=== PATIENT | female | born 1990 | race African-American/Black ===

== ENCOUNTER → 2017-11-21 | Outpatient (CLI) | payer OTHER | LOC: MC.RAD 09:45 | DX: N63.10 Unspecified lump in the right breast, unspecified quadrant (principal); M79.601 Pain in right arm; Z80.3 Family history of malignant neoplasm of breast ==

== ENCOUNTER 2018-03-09 14:35 | Emergency (ER) | payer MEDICAID ==
[~2018-03-09] VITALS: Ht 162.6 cm; Wt 78.2 kg
[2018-03-09 14:59] LABS: COLLECTION METHOD CLEAN CATCH
[2018-03-09 15:14] LABS: BASO % 0.4 % (0.0-2.0); EOS # 0.1 (0.0-0.7); EOS % 1.7 % (0-4.0); GRAN # 4.9 (1.4-6.5); GRAN % 59.8 % (42.2-75.2); HEMATOCRIT 38.5 % (37.0-47.0); HEMOGLOBIN 12.6 g/dl (12.5-16.0); LYMPH # 2.4 (1.2-3.4); LYMPH % 29.4 % (20.0-51.0); MEAN CELL VOLUME 80 fl (80.0-100.0); MEAN CORPUSCULAR HEMOGLOBIN 26 pg (27.0-31.0); MEAN CORPUSCULAR HGB CONC 33 g/dl (33.0-37.0); MEAN PLATELET VOLUME 8.7 fl (7.4-10.4); MONO # 0.7 (0.1-0.6); MONO % 8.5 % (1.7-9.3); PLATELET COUNT 235 K/mm3 (130-400); RED BLOOD COUNT 4.79 M/mm3 (4.10-5.30); REDCELL DISTRIBUTION WIDTH-CV 13.8 % (11.5-14.5)
[2018-03-09 15:15] LABS: BUDDING YEAST Present /hpf; MUCOUS Present /lpf; PH 6 (5-8); URINE APPEARANCE Clear; URINE BACTERIA None Seen /hpf; URINE BILIRUBIN Negative (NEGATIVE); URINE BLOOD 3+ (NEGATIVE); URINE COLOR Amber; URINE GLUCOSE Negative (NEGATIVE); URINE KETONE Negative (NEGATIVE); URINE LEUKOCYTE ESTERASE Trace (NEGATIVE); URINE NITRATE Negative (NEGATIVE); URINE PROTEIN(semi-quant) 2+ (NEGATIVE); URINE RBC >50 /hpf; URINE UROBILINOGEN Negative (NEGATIVE)
[2018-03-09 16:47] VITALS: BP 124/84; PULSE 64; TEMP 97
== END 2018-03-09 16:48 | disposition home or self-care (01) ==
LOC: COL.ER 14:35
PROVIDERS: Emergency Medicine
DX: O20.0 Threatened abortion (principal); Z3A.00 Weeks of gestation of pregnancy not specified; Z87.59 Personal history of other complications of pregnancy, childbirth and the puerperium; Z67.20 Type B blood, Rh positive

== ENCOUNTER 2018-09-30 16:47 | Emergency (ER) | payer MEDICAID ==
[~2018-09-30] VITALS: Ht 162.6 cm; Wt 76.4 kg
[2018-09-30 16:53] VITALS: TEMP 98.5
[2018-09-30 17:20] LABS: COLLECTION METHOD CLEAN CATCH
[2018-09-30 17:24] LABS: BASO % 0.2 % (0.0-2.0); EOS # 0.2 (0.0-0.7); EOS % 1.6 % (0-4.0); GRAN # 8.9 (1.4-6.5); GRAN % 76.2 % (42.2-75.2); HEMOGLOBIN 10.8 g/dl (12.5-16.0); LYMPH # 1.8 (1.2-3.4); LYMPH % 15.2 % (20.0-51.0); MEAN CELL VOLUME 81 fl (80.0-100.0); MEAN CORPUSCULAR HEMOGLOBIN 28 pg (27.0-31.0); MEAN CORPUSCULAR HGB CONC 34 g/dl (33.0-37.0); MEAN PLATELET VOLUME 8.3 fl (7.4-10.4); MONO # 0.7 (0.1-0.6); MONO % 6.3 % (1.7-9.3); PLATELET COUNT 196 K/mm3 (130-400); RED BLOOD COUNT 3.93 M/mm3 (4.10-5.30); REDCELL DISTRIBUTION WIDTH-CV 13.7 % (11.5-14.5)
[2018-09-30 17:28] LABS: HEMATOCRIT 31.7 % (37.0-47.0)
[2018-09-30 17:33] LABS: ALBUMIN 3.3 gm/dL (3.5-5.0); BILIRUBIN,TOTAL 0.1 mg/dL (0.0-1.0); CALCIUM 8.9 mg/dL (8.4-10.2); CREATININE, serum 0.49 mg/dL (0.52-1.25); POTASSIUM 3.7 mmol/L (3.4-5.0); TOTAL PROTEIN 6.6 gm/dL (6.4-8.2)
[2018-09-30 17:38] LABS: AMORPHOUS CRYSTAL Present /uL; MUCOUS Present /lpf; PH 7 (5-8); URINE APPEARANCE Cloudy; URINE BACTERIA None Seen /hpf; URINE BILIRUBIN Negative (NEGATIVE); URINE BLOOD Negative (NEGATIVE); URINE COLOR Yellow; URINE GLUCOSE Negative (NEGATIVE); URINE KETONE Negative (NEGATIVE); URINE LEUKOCYTE ESTERASE Negative (NEGATIVE); URINE NITRATE Negative (NEGATIVE); URINE PROTEIN(semi-quant) Negative (NEGATIVE); URINE RBC 0-2 /hpf; URINE UROBILINOGEN Negative (NEGATIVE)
[2018-09-30] MEDS ORDERED: ZITHROMAX Z PA250 MG PO (18:48)
[2018-09-30 19:03] VITALS: BP 106/74; PULSE 76
== END 2018-09-30 19:03 | disposition home or self-care (01) ==
LOC: COL.ER 16:47
PROVIDERS: Physician Assistant
DX: J06.9 Acute upper respiratory infection, unspecified (principal)
CPT/HCPCS: J7030

== ENCOUNTER 2018-12-09 09:07 | Emergency (ER) | payer MEDICAID ==
[~2018-12-09] VITALS: Ht 162.6 cm; Wt 8.2 kg
[~2018-12-09 09:07] MED LIST: ZITHROMAX Z PA250 MG PO
[2018-12-09 09:11] VITALS: BP 116/71; TEMP 98.7
[2018-12-09 09:41] LABS: BASO % 0.1 % (0.0-2.0); EOS # 0.2 (0.0-0.7); EOS % 2.1 % (0-4.0); GRAN # 5.6 (1.4-6.5); GRAN % 69.1 % (42.2-75.2); HEMOGLOBIN 10.1 g/dl (12.5-16.0); LYMPH # 1.7 (1.2-3.4); LYMPH % 21.5 % (20.0-51.0); MEAN CELL VOLUME 78 fl (80.0-100.0); MEAN CORPUSCULAR HEMOGLOBIN 26 pg (27.0-31.0); MEAN CORPUSCULAR HGB CONC 33 g/dl (33.0-37.0); MEAN PLATELET VOLUME 7.5 fl (7.4-10.4); MONO # 0.5 (0.1-0.6); MONO % 6.6 % (1.7-9.3); PLATELET COUNT 161 K/mm3 (130-400); RED BLOOD COUNT 3.95 M/mm3 (4.10-5.30); REDCELL DISTRIBUTION WIDTH-CV 13.8 % (11.5-14.5)
[2018-12-09 09:43] LABS: HEMATOCRIT 30.9 % (37.0-47.0)
[2018-12-09 10:02] LABS: ALBUMIN 3.1 gm/dL (3.5-5.0); BILIRUBIN,TOTAL 0.2 mg/dL (0.0-1.0); CALCIUM 8.7 mg/dL (8.4-10.2); CREATININE, serum 0.4 mg/dL (0.52-1.25); POTASSIUM 3.8 mmol/L (3.4-5.0); TOTAL PROTEIN 6.4 gm/dL (6.4-8.2)
[2018-12-09 10:49] LABS: COLLECTION METHOD CLEAN CATCH
[2018-12-09 11:07] LABS: MUCOUS Present /lpf; PH 6 (5-8); SQUAMOUS EPITHELIAL >50 /hpf; URINE APPEARANCE Turbid; URINE BACTERIA Rare /hpf; URINE BILIRUBIN Negative (NEGATIVE); URINE BLOOD Negative (NEGATIVE); URINE COLOR Amber; URINE GLUCOSE Negative (NEGATIVE); URINE KETONE Negative (NEGATIVE); URINE LEUKOCYTE ESTERASE 3+ (NEGATIVE); URINE NITRATE Negative (NEGATIVE); URINE PROTEIN(semi-quant) 1+ (NEGATIVE); URINE UROBILINOGEN >=4.0 mg/dL (NEGATIVE)
[2018-12-09] MEDS ORDERED: CEPHALEXIN500 M1 PO (11:11)
[2018-12-09 11:26] VITALS: PULSE 110
== END 2018-12-09 11:26 | disposition home or self-care (01) ==
LOC: COL.ER 09:07
PROVIDERS: Physician Assistant
DX: O23.93 Unspecified genitourinary tract infection in pregnancy, third trimester (principal); O99.513 Diseases of the respiratory system complicating pregnancy, third trimester; O99.013 Anemia complicating pregnancy, third trimester; J06.9 Acute upper respiratory infection, unspecified; Z3A.30 30 weeks gestation of pregnancy

== ENCOUNTER 2019-02-09 19:00 | Inpatient (IN) | payer MEDICAID ==
[~2019-02-09] VITALS: Ht 165.1 cm; Wt 92.3 kg
[2019-02-09] VITALS (9 sets, daily range): BP systolic 120–147; BP diastolic 60–100; PULSE 62–88; TEMP 98–98.3
[~2019-02-09 19:00] MED LIST changes: +CEPHALEXIN500 M1 PO
--- NOTE | 2019-02-09 19:05 | NUR ---
HERE WITH GRANDMOTHER AND GIRLFRIEND FOR LABOR CHECK. VERY UNCOMFORTBLE -UNABLE TO WALK DURING. [address] VANESSA. ADMIT ORDERS
--- NOTE | 2019-02-09 21:20 | NUR ---
2119/-2 D ODILIA CALLED FOR EPIDURAL PLACEMENT
[2019-02-09 21:29] LABS: BASO % 0.1 % (0.0-2.0); EOS % 0.1 % (0-4.0); GRAN # 9.5 (1.4-6.5); GRAN % 82.1 % (42.2-75.2); HEMATOCRIT 32.4 % (37.0-47.0); LYMPH # 1.5 (1.2-3.4); LYMPH % 13.1 % (20.0-51.0); MEAN CELL VOLUME 75 fl (80.0-100.0); MEAN CORPUSCULAR HEMOGLOBIN 23 pg (27.0-31.0); MEAN CORPUSCULAR HGB CONC 31 g/dl (33.0-37.0); MEAN PLATELET VOLUME 8.1 fl (7.4-10.4); MONO # 0.4 (0.1-0.6); MONO % 3.7 % (1.7-9.3); PLATELET COUNT 185 K/mm3 (130-400); RED BLOOD COUNT 4.35 M/mm3 (4.10-5.30); REDCELL DISTRIBUTION WIDTH-CV 16.4 % (11.5-14.5)
[2019-02-09] MEDS ORDERED: PRENATAL MVI (21:36)
--- NOTE | 2019-02-09 22:00 | NUR ---
SITTING UPRIGHT FOR EPID PER Home HARTLEY. TOLERATES WELL. TO LL AFTER. FAMILY AND FRIEND HERE,SUPPORTIVE
--- NOTE | 2019-02-09 23:10 | NUR ---
BEDSIDE REPORT TO JESSE Alvarez RN.
[2019-02-10] VITALS (23 sets, daily range): BP systolic 102–149; BP diastolic 61–88; PULSE 77–100; TEMP 98.1–99
--- NOTE | 2019-02-10 03:11 | NUR ---
0230- Patient called out stating that she thinks her water broke. SVE at this time 10cm/+2 station with meconium stained fluid. Patient feeling pressure and urge to push. 0240- Patient in lithotomy, instructed on pushing. 0245- Dr. Collazo called for delivery. 0303- Dr. Collazo and nursery nurse at bedside for delivery at this time. 0311- Spontaneous delivery of viable female infant at this time. placed on patient's chest, dried and stimulated, pink and crying. 0320- Spontaneous delivery of intact placenta, pitocin rapidly infusing at this time. 0323- First degree repaired per Dr. Collazo. EBL 200cc's and apgars 9,9,9.
--- NOTE | 2019-02-10 09:15 | NUR ---
Initial visit; Mom and Grandma thanked Clinical Research Director for offering congratulations and God's blessings for the of their little girl. Clinical Research Director thanked María for choosing [facility].
--- NOTE | 2019-02-11 03:00 | NUR ---
INFANT TO [facility] AT THIS TIME PER PT REQUEST. PT TEARFUL AND REPORTS THAT HER NIPPLES ARE VERY SORE AND TENDER. NIPPLE SHIELD HAD BEEN PROVIDED EARLIER IN THE EVENING. ASSISTED WITH LATCHING DURING BREASTFEED AND LATCH IS GOOD. LANOLIN AT BEDSIDE. PT REPORTS SHE IS GOING TO ATTEMPT TO SLEEP.
[2019-02-11 08:35] VITALS: BP 135/91; PULSE 90; TEMP 97.7
[2019-02-11 11:30] VITALS: BP 128/81; PULSE 91; TEMP 98.6
[2019-02-11 16:50] VITALS: BP 122/79; PULSE 89; TEMP 98.3
[2019-02-11 19:15] VITALS: BP 133/83; PULSE 89; TEMP 98.9
[2019-02-12 04:05] VITALS: BP 131/83; PULSE 78; TEMP 98.1
--- NOTE | 2019-02-12 06:00 | NUR ---
Rests in bed, awakens with verbal stimuli. Denies any needs at this time.
[2019-02-12 07:30] VITALS: BP 120/89; PULSE 72; TEMP 98.1
--- NOTE | 2019-02-12 08:00 | NUR ---
Holds baby lovingly. Denies any needs at this time.
[2019-02-12] MEDS ORDERED: IBU600 MG PO (08:10)
--- NOTE | 2019-02-12 14:00 | NUR ---
Father of the baby here. Holds baby.
--- NOTE | 2019-02-12 15:00 | NUR ---
1515 Discharge instructions given, verbalizes understanding.
== END 2019-02-12 15:30 | disposition home or self-care (01) | DRG 807 ==
LOC: LDRO 19:00 → LDR 20:23 → OB 20:23
PROVIDERS: ADMIT Obstetrics & Gynecology
PROC: 10E0XZZ Delivery of Products of Conception, External Approach (ICD-10-PCS; principal; 2019-02-09)
PROC: 0HQ9XZZ Repair Perineum Skin, External Approach (ICD-10-PCS; 2019-02-09)
DX: O99.02 Anemia complicating childbirth (principal); Z37.0 Single live birth; O77.0 Labor and delivery complicated by meconium in amniotic fluid; O70.0 First degree perineal laceration during delivery; Z3A.39 39 weeks gestation of pregnancy
CPT/HCPCS: J2795; J7120

== ENCOUNTER 2020-06-12 09:35 | Emergency (ER) | payer SELFPAY ==
[~2020-06-12] VITALS: Ht 162.6 cm; Wt 84.5 kg
[~2020-06-12 09:35] MED LIST changes: +IBU600 MG PO; +PRENATAL MVI
[2020-06-12 10:00] VITALS: BP 123/87
[2020-06-12 10:33] LABS: BASO % 0.2 % (0.0-2.0); EOS % 0.2 % (0-4.0); GRAN # 4.4 (1.4-6.5); GRAN % 75.6 % (42.2-75.2); HEMATOCRIT 42.1 % (37.0-47.0); HEMOGLOBIN 13.6 g/dl (12.5-16.0); LYMPH % 17.9 % (20.0-51.0); MEAN CELL VOLUME 78 fl (80.0-100.0); MEAN CORPUSCULAR HEMOGLOBIN 25 pg (27.0-31.0); MEAN CORPUSCULAR HGB CONC 32 g/dl (33.0-37.0); MEAN PLATELET VOLUME 8.3 fl (7.4-10.4); MONO # 0.3 (0.1-0.6); MONO % 5.9 % (1.7-9.3); PLATELET COUNT 123 K/mm3 (130-400); RED BLOOD COUNT 5.38 M/mm3 (4.10-5.30); REDCELL DISTRIBUTION WIDTH-CV 13.2 % (11.5-14.5)
[2020-06-12 10:40] LABS: STREP SCREEN NEGATIVE
[2020-06-12 10:43] LABS: ALBUMIN 4.2 gm/dL (3.5-5.0); BILIRUBIN,TOTAL 0.4 mg/dL (0.0-1.0); CALCIUM 8.8 mg/dL (8.4-10.2); CREATININE, serum 0.74 (0.52-1.25); POTASSIUM 3.8 mmol/L (3.4-5.0); TOTAL PROTEIN 8.2 gm/dL (6.4-8.2)
[2020-06-12 11:26] VITALS: PULSE 89; TEMP 99
== END 2020-06-12 11:45 | disposition home or self-care (01) ==
LOC: COL.ER 09:35
PROVIDERS: Physician Assistant
DX: B34.9 Viral infection, unspecified (principal); Z20.828 Contact with and (suspected) exposure to other viral communicable diseases
CPT/HCPCS: J7030

== ENCOUNTER 2020-07-02 13:54 | Emergency (ER) | payer SELFPAY ==
[~2020-07-02] VITALS: Ht 162.6 cm; Wt 79.5 kg
[2020-07-02 14:07] VITALS: TEMP 99.9
[2020-07-02 14:51] LABS: HEMOGLOBIN 11.7 g/dl (12.5-16.0); MEAN CELL VOLUME 77 fl (80.0-100.0); MEAN CORPUSCULAR HEMOGLOBIN 25 pg (27.0-31.0); MEAN CORPUSCULAR HGB CONC 32 g/dl (33.0-37.0); MEAN PLATELET VOLUME 8.5 fl (7.4-10.4); PLATELET COUNT 166 K/mm3 (130-400); RED BLOOD COUNT 4.74 M/mm3 (4.10-5.30); REDCELL DISTRIBUTION WIDTH-CV 13.6 % (11.5-14.5)
[2020-07-02 14:58] LABS: COLLECTION METHOD CLEAN CATCH
[2020-07-02 15:00] LABS: HEMATOCRIT 36.5 % (37.0-47.0)
[2020-07-02 15:07] LABS: MUCOUS Present /lpf; PH 6 (5-8); URINE APPEARANCE Cloudy; URINE BACTERIA Occasional /hpf; URINE BILIRUBIN Negative (NEGATIVE); URINE BLOOD Negative (NEGATIVE); URINE COLOR Amber; URINE GLUCOSE Negative (NEGATIVE); URINE KETONE Negative (NEGATIVE); URINE LEUKOCYTE ESTERASE 3+ (NEGATIVE); URINE NITRATE Negative (NEGATIVE); URINE PROTEIN(semi-quant) 2+ (NEGATIVE); URINE UROBILINOGEN >=4.0 mg/dL (NEGATIVE)
[2020-07-02 15:19] LABS: ALBUMIN 3.5 gm/dL (3.5-5.0); BILIRUBIN,TOTAL 0.7 mg/dL (0.0-1.0); CALCIUM 8.4 mg/dL (8.4-10.2); CREATININE, serum 0.6 (0.52-1.25); POTASSIUM 3.6 mmol/L (3.4-5.0); TOTAL PROTEIN 7.5 gm/dL (6.4-8.2)
[2020-07-02 15:35] LABS: BAND 2 % (0-10); LYMPHOCYTE 10 % (20.0-51.0); NEUTROPHILS 79 % (42.0-75.2); NUCLEATED RED BLOOD CELL 1 (0-6)
[2020-07-02 15:36] LABS: OVALOCYTES 1+
[2020-07-02 15:37] LABS: HYPOCHROMIA 1+; MICROCYTOSIS 1+; PLATELET ESTIMATE NORMAL (NORMAL)
[2020-07-02] MEDS ORDERED: PROTONIX20 MG PO (17:26)
[2020-07-02] MEDS ORDERED: ZOFRAN ODT4 MG PO (17:26)
[2020-07-02] MEDS ORDERED: CEFTIN500 MG PO (17:26)
[2020-07-02 17:30] VITALS: BP 108/64; PULSE 85
== END 2020-07-02 17:39 | disposition home or self-care (01) ==
LOC: COL.ER 13:54
PROVIDERS: Emergency Medicine
DX: R11.2 Nausea with vomiting, unspecified (principal); R10.11 Right upper quadrant pain; N39.0 Urinary tract infection, site not specified; Z32.02 Encounter for pregnancy test, result negative
CPT/HCPCS: J0696; J2405; J7030; Q9967

== ENCOUNTER 2020-07-18 09:33 | Emergency (ER) | payer SELFPAY ==
[~2020-07-18] VITALS: Ht 162.6 cm; Wt 77.3 kg
[~2020-07-18 09:33] MED LIST changes: +CEFTIN500 MG PO; +PROTONIX20 MG PO; +ZOFRAN ODT4 MG PO
[2020-07-18 10:37] LABS: BASO % 0.5 % (0.0-2.0); EOS % 0.1 % (0-4.0); GRAN # 5.4 (1.4-6.5); GRAN % 73.7 % (42.2-75.2); HEMATOCRIT 33.5 % (37.0-47.0); HEMOGLOBIN 10.7 g/dl (12.5-16.0); LYMPH # 1.3 (1.2-3.4); LYMPH % 18.1 % (20.0-51.0); MEAN CELL VOLUME 77 fl (80.0-100.0); MEAN CORPUSCULAR HEMOGLOBIN 25 pg (27.0-31.0); MEAN CORPUSCULAR HGB CONC 32 g/dl (33.0-37.0); MEAN PLATELET VOLUME 8.5 fl (7.4-10.4); MONO # 0.5 (0.1-0.6); MONO % 6.4 % (1.7-9.3); PLATELET COUNT 112 K/mm3 (130-400); RED BLOOD COUNT 4.33 M/mm3 (4.10-5.30); REDCELL DISTRIBUTION WIDTH-CV 15.6 % (11.5-14.5)
[2020-07-18 10:46] LABS: ALBUMIN 3.9 gm/dL (3.5-5.0); BILIRUBIN,TOTAL 0.7 mg/dL (0.0-1.0); C-REACTIVE PROTEIN 6.3 mg/dL (0.0-0.9); CALCIUM 8.5 mg/dL (8.4-10.2); CREATININE, serum 0.67 (0.52-1.25); MONOSCREEN NEGATIVE; POTASSIUM 3.7 mmol/L (3.4-5.0); TOTAL PROTEIN 8.2 gm/dL (6.4-8.2)
[2020-07-18 10:47] LABS: STREP SCREEN NEGATIVE
[2020-07-18] MEDS ORDERED: ZITHROMAX Z PA250 MG PO (12:07)
[2020-07-18] MEDS ORDERED: NORCO 325 MG-51 TAB PO (12:07)
[2020-07-18 12:31] VITALS: BP 118/70; PULSE 97; TEMP 98.1
== END 2020-07-18 12:33 | disposition home or self-care (01) ==
LOC: COL.ER 09:33
PROVIDERS: Family Medicine
DX: I88.9 Nonspecific lymphadenitis, unspecified (principal); E86.0 Dehydration; Z20.828 Contact with and (suspected) exposure to other viral communicable diseases
CPT/HCPCS: J1100; J7120

== ENCOUNTER 2021-06-06 09:14 | Emergency (ER) | payer MEDICAID ==
[~2021-06-06] VITALS: Ht 162.6 cm; Wt 97.3 kg
[~2021-06-06 09:14] MED LIST changes: +NORCO 325 MG-51 TAB PO
[2021-06-06 09:23] VITALS: TEMP 98.8
[2021-06-06 11:54] VITALS: BP 122/62; PULSE 80
== END 2021-06-06 11:55 | disposition home or self-care (01) ==
LOC: COL.ER 09:14
DX: G43.909 Migraine, unspecified, not intractable, without status migrainosus (principal); J06.9 Acute upper respiratory infection, unspecified; Z20.822 Contact with and (suspected) exposure to COVID-19; Z79.1 Long term (current) use of non-steroidal anti-inflammatories (NSAID)
CPT/HCPCS: C9113; J1100; J1200; J1885; J2405; J7030

== ENCOUNTER 2021-06-21 15:37 | Emergency (ER) | payer MEDICAID ==
[~2021-06-21] VITALS: Ht 162.6 cm; Wt 97.3 kg
[2021-06-21 16:03] VITALS: BP 122/84; PULSE 106
[2021-06-21 17:18] LABS: STREP SCREEN NEGATIVE
[2021-06-21 17:52] LABS: COLLECTION METHOD CLEAN CATCH
[2021-06-21 18:37] LABS: MUCOUS Present /lpf; PH 6 (5-8); URINE APPEARANCE Cloudy; URINE BACTERIA Rare /hpf; URINE BILIRUBIN Negative (NEGATIVE); URINE BLOOD Negative (NEGATIVE); URINE COLOR Amber; URINE GLUCOSE Negative (NEGATIVE); URINE KETONE 1+ (NEGATIVE); URINE LEUKOCYTE ESTERASE 1+ (NEGATIVE); URINE NITRATE Negative (NEGATIVE); URINE PROTEIN(semi-quant) 2+ (NEGATIVE); URINE UROBILINOGEN >=4.0 mg/dL (NEGATIVE)
[2021-06-21] MEDS ORDERED: OMNICEF 300MG300 MG PO (18:43)
[2021-06-21] MEDS ORDERED: NORCO 325 MG-51 TAB PO (18:43)
[2021-06-21 19:01] VITALS: TEMP 102.8
== END 2021-06-21 19:03 | disposition home or self-care (01) ==
LOC: COL.ER 15:37
PROVIDERS: Family Medicine
DX: G43.909 Migraine, unspecified, not intractable, without status migrainosus (principal); N39.0 Urinary tract infection, site not specified; Z20.822 Contact with and (suspected) exposure to COVID-19
CPT/HCPCS: J0780; J1200

== ENCOUNTER 2021-07-04 09:19 | Emergency (ER) | payer MEDICAID ==
[~2021-07-04] VITALS: Ht 162.6 cm; Wt 97.3 kg
[~2021-07-04 09:19] MED LIST changes: +OMNICEF 300MG300 MG PO
[2021-07-04 09:32] VITALS: BP 124/86; TEMP 98.5
[2021-07-04] MEDS ORDERED: PREDNISONE20 MG PO (10:44)
[2021-07-04] MEDS ORDERED: POLYMYXIN B/TRIMETH OS (10:44)
[2021-07-04 10:59] VITALS: PULSE 81
== END 2021-07-04 11:00 | disposition home or self-care (01) ==
LOC: COL.ER 09:19
DX: H10.32 Unspecified acute conjunctivitis, left eye (principal)

== ENCOUNTER 2021-07-25 09:07 | Emergency (ER) | payer MEDICAID ==
[~2021-07-25] VITALS: Ht 162.6 cm; Wt 90.9 kg
[~2021-07-25 09:07] MED LIST changes: +POLYMYXIN B/TRIMETH OS; +PREDNISONE20 MG PO
[2021-07-25 09:18] VITALS: TEMP 99.7
[2021-07-25 09:47] LABS: COLLECTION METHOD CLEAN CATCH
[2021-07-25 10:01] LABS: MUCOUS Present /lpf; PH 5 (5-8); SQUAMOUS EPITHELIAL 20-50 /hpf; URINE APPEARANCE Cloudy; URINE BACTERIA Occasional /hpf; URINE BILIRUBIN Negative (NEGATIVE); URINE BLOOD Negative (NEGATIVE); URINE COLOR Amber; URINE GLUCOSE Negative (NEGATIVE); URINE KETONE Trace (NEGATIVE); URINE LEUKOCYTE ESTERASE Trace (NEGATIVE); URINE NITRATE Negative (NEGATIVE); URINE PROTEIN(semi-quant) 2+ (NEGATIVE); URINE UROBILINOGEN >=4.0 mg/dL (NEGATIVE)
[2021-07-25 10:05] LABS: HEMATOCRIT 39.2 % (37.0-47.0); HEMOGLOBIN 12.8 g/dl (12.5-16.0); MEAN CELL VOLUME 75 fl (80.0-100.0); MEAN CORPUSCULAR HEMOGLOBIN 24 pg (27.0-31.0); MEAN CORPUSCULAR HGB CONC 33 g/dl (33.0-37.0); MEAN PLATELET VOLUME 8.4 fl (7.4-10.4); PLATELET COUNT 126 K/mm3 (130-400); RED BLOOD COUNT 5.25 M/mm3 (4.10-5.30)
[2021-07-25 10:19] LABS: MONOSCREEN NEGATIVE
[2021-07-25 10:21] LABS: ALBUMIN 3.6 gm/dL (3.5-5.0); BILIRUBIN,TOTAL 0.6 mg/dL (0.2-1.2); CREATININE, serum 0.88 mg/dL (0.57-1.11); POTASSIUM 3.6 mmol/L (3.5-4.5); TOTAL PROTEIN 8.6 gm/dL (6.2-8.1)
[2021-07-25 10:33] LABS: STREP SCREEN NEGATIVE
[2021-07-25] MEDS ORDERED: ZOFRAN ODT4 MG PO (10:49)
[2021-07-25 11:20] LABS: BAND 2 % (0-10); LYMPHOCYTE 11 % (20.0-51.0); NEUTROPHILS 82 % (42.0-75.2)
[2021-07-25 11:21] LABS: OVALOCYTES 1+
[2021-07-25 11:22] LABS: MICROCYTOSIS 1+
[2021-07-25 11:23] LABS: HYPOCHROMIA 1+; PLATELET ESTIMATE DECREASED (NORMAL)
[2021-07-25 11:30] VITALS: BP 134/78; PULSE 89
== END 2021-07-25 11:39 | disposition home or self-care (01) ==
LOC: COL.ER 09:07
PROVIDERS: Emergency Medicine
DX: B34.9 Viral infection, unspecified (principal); Z20.822 Contact with and (suspected) exposure to COVID-19
CPT/HCPCS: J0561; J2405; J7030

== ENCOUNTER → 2021-10-12 | Outpatient (CLI) | payer MEDICAID ==
[2021-10-12 13:36] LABS: BASO % 0.3 % (0.0-2.0); EOS % 0.1 % (0.0-4.0); GRAN # 5.6 K/mm3 (1.4-6.5); GRAN % 79.5 % (42.2-75.2); HEMATOCRIT 38.7 % (37.0-47.0); HEMOGLOBIN 12.4 g/dl (12.5-16.0); LYMPH # 0.8 K/mm3 (1.2-3.4); LYMPH % 10.7 % (20.0-51.0); MEAN CELL VOLUME 71 fl (80.0-100.0); MEAN CORPUSCULAR HEMOGLOBIN 23 pg (27-31); MEAN CORPUSCULAR HGB CONC 32 g/dl (33.0-37.0); MEAN PLATELET VOLUME 9.5 fl (7.4-10.4); MONO # 0.6 K/mm3 (0.1-0.6); MONO % 8.1 % (1.7-9.3); PLATELET COUNT 191 K/mm3 (130-400); RED BLOOD COUNT 5.42 M/mm3 (4.10-5.30); REDCELL DISTRIBUTION WIDTH-CV 16.2 % (11.5-14.5)
[2021-10-12 13:59] LABS: ALBUMIN 3.1 gm/dL (3.5-5.0); C-REACTIVE PROTEIN 8.76 mg/dL (0.00-0.50); CALCIUM 9.1 mg/dL (8.4-10.2); CREATININE, serum 0.67 mg/dL (0.57-1.11); POTASSIUM 3.6 mmol/L (3.5-4.5); TOTAL PROTEIN 9.6 gm/dL (6.2-8.1)
[2021-10-12 14:45] LABS: HIV 1/2 Antibodies Non-Reactive; HIV-1p24 Antigen Non-Reactive
== END ==
LOC: COL.LAB 12:43 → COL.RAD 15:00
PROVIDERS: Registered Nurse
DX: Z13.9 Encounter for screening, unspecified (principal); R10.9 Unspecified abdominal pain; R59.0 Localized enlarged lymph nodes
CPT/HCPCS: 87522; Q9967

== ENCOUNTER 2021-10-13 10:20 | Emergency (ER) | payer MEDICAID ==
[~2021-10-13] VITALS: Ht 162.6 cm; Wt 72.7 kg
[2021-10-13 12:03] LABS: BASO % 0.4 % (0.0-2.0); GRAN # 3.3 K/mm3 (1.4-6.5); HEMATOCRIT 38.1 % (37.0-47.0); HEMOGLOBIN 12.2 g/dl (12.5-16.0); LYMPH # 0.7 K/mm3 (1.2-3.4); LYMPH % 16.4 % (20.0-51.0); MEAN CELL VOLUME 72 fl (80.0-100.0); MEAN CORPUSCULAR HEMOGLOBIN 23 pg (27-31); MEAN CORPUSCULAR HGB CONC 32 g/dl (33.0-37.0); MONO # 0.4 K/mm3 (0.1-0.6); MONO % 8.9 % (1.7-9.3); PLATELET COUNT 155 K/mm3 (130-400); RED BLOOD COUNT 5.32 M/mm3 (4.10-5.30); REDCELL DISTRIBUTION WIDTH-CV 16.2 % (11.5-14.5)
[2021-10-13 13:00] LABS: ALBUMIN 2.5 gm/dL (3.5-5.0); BILIRUBIN,TOTAL 0.7 mg/dL (0.2-1.2); C-REACTIVE PROTEIN 5.52 mg/dL (0.00-0.50); CALCIUM 7.8 mg/dL (8.4-10.2); CREATININE, serum 0.58 mg/dL (0.57-1.11); POTASSIUM 3.4 mmol/L (3.5-4.5); TOTAL PROTEIN 7.5 gm/dL (6.2-8.1)
[2021-10-13 14:30] VITALS: BP 130/93; PULSE 101; TEMP 98.6
== END 2021-10-13 14:35 | disposition home or self-care (01) ==
LOC: COL.ER 10:20
PROVIDERS: Nurse Practitioner
DX: R59.0 Localized enlarged lymph nodes (principal); Z32.02 Encounter for pregnancy test, result negative
CPT/HCPCS: J7030

== ENCOUNTER → 2021-10-26 | Outpatient (CLI) | payer MEDICAID | LOC: COL.RAD 09:32 | DX: I82.421 Acute embolism and thrombosis of right iliac vein (principal); R59.0 Localized enlarged lymph nodes | CPT/HCPCS: Q9967 ==

== ENCOUNTER → 2021-11-16 | Outpatient (CLI) | payer MEDICAID ==
[~2021-11-16] VITALS: Ht 162.6 cm; Wt 70.0 kg
[2021-11-16 10:57] VITALS: BP 124/81; PULSE 93; TEMP 97.9
[2021-11-16 12:05] VITALS: BP 111/77; PULSE 97
== END ==
LOC: COL.RAD 10:36
DX: R59.9 Enlarged lymph nodes, unspecified (principal)
CPT/HCPCS: 32108

== ENCOUNTER → 2021-12-05 | Outpatient (CLI) | payer MEDICAID | LOC: COL.RAD 09:12 | DX: K76.0 Fatty (change of) liver, not elsewhere classified (principal); R59.9 Enlarged lymph nodes, unspecified | CPT/HCPCS: Q9967 ==

== ENCOUNTER 2022-01-31 19:06 | Emergency (ER) | payer MEDICAID ==
[~2022-01-31] VITALS: Ht 162.6 cm; Wt 65.0 kg
[~2022-01-31 19:06] MED LIST changes: +MOTRIN 600600 MG/TAB PO; +ULTRAM 50MG TAB50 MG PO
[2022-01-31 19:13] VITALS: TEMP 98.4
[2022-01-31 20:13] LABS: COLLECTION METHOD CLEAN CATCH
[2022-01-31 20:27] LABS: MUCOUS Present (NOT PRESENT); PH 6 (5-8); SQUAMOUS EPITHELIAL 20-50 /hpf (0-10); URINE APPEARANCE Cloudy (CLEAR/HAZY); URINE BACTERIA Occasional /hpf (NONE SEEN); URINE BILIRUBIN Positive (NEGATIVE); URINE BLOOD Negative (NEGATIVE); URINE COLOR Amber (YELLOW); URINE GLUCOSE Negative (NEGATIVE); URINE KETONE Negative (NEGATIVE); URINE LEUKOCYTE ESTERASE Trace (NEGATIVE); URINE NITRATE Negative (NEGATIVE); URINE PROTEIN(semi-quant) 2+ (NEGATIVE); URINE UROBILINOGEN >=4.0 (NEGATIVE)
[2022-01-31 20:36] LABS: BASO % 0.3 % (0.0-2.0); EOS % 0.1 % (0.0-4.0); GRAN # 5.1 K/mm3 (1.4-6.5); GRAN % 76.1 % (42.2-75.2); HEMATOCRIT 34.8 % (37.0-47.0); HEMOGLOBIN 11.2 g/dl (12.5-16.0); LYMPH % 14.7 % (20.0-51.0); MEAN CELL VOLUME 75 fl (80.0-100.0); MEAN CORPUSCULAR HEMOGLOBIN 24 pg (27-31); MEAN CORPUSCULAR HGB CONC 32 g/dl (33.0-37.0); MEAN PLATELET VOLUME 8.4 fl (7.4-10.4); MONO # 0.5 K/mm3 (0.1-0.6); MONO % 6.9 % (1.7-9.3); PLATELET COUNT 184 K/mm3 (130-400); RED BLOOD COUNT 4.63 M/mm3 (4.10-5.30); REDCELL DISTRIBUTION WIDTH-CV 17.2 % (11.5-14.5)
[2022-01-31 20:54] LABS: ALBUMIN 2.4 gm/dL (3.5-5.0); BILIRUBIN,TOTAL 0.6 mg/dL (0.2-1.2); C-REACTIVE PROTEIN 7.63 mg/dL (0.00-0.50); CREATININE, serum 0.59 mg/dL (0.57-1.11); POTASSIUM 3.7 mmol/L (3.5-4.5); TOTAL PROTEIN 8.7 gm/dL (6.2-8.1)
[2022-01-31 21:42] VITALS: BP 122/0; PULSE 98
== END 2022-01-31 21:42 | disposition home or self-care (01) ==
LOC: COL.ER 19:06
PROVIDERS: Family Medicine
DX: R59.0 Localized enlarged lymph nodes (principal); R63.4 Abnormal weight loss
CPT/HCPCS: J2405; J7120; Q9967

== ENCOUNTER 2022-04-02 11:00 | Inpatient (IN) | payer MEDICAID ==
[~2022-04-02] VITALS: Ht 162.6 cm; Wt 55.3 kg
[2022-04-02 16:56] VITALS: BP 113/68; PULSE 102; TEMP 98.9
--- NOTE | 2022-04-03 05:09 | NUR ---
Pt has had an uneventful shift, resting quietly in bed at this moment. Pt has had minimal complaints of pain; pt stated during the shift that her back was hurting, PRN pain medication given per EMAR. All other needs met at this time, call light within reach.
[2022-04-03 05:37] VITALS: BP 133/75; PULSE 96; TEMP 98.2
--- NOTE | 2022-04-03 10:33 | NUR ---
PATIENT ALERT AND ORIENTED X3. VSS. PATIENT HERE FOR CIPD, LOWER EXTREMITY WEAKNESS. PATIENT DENIES PAIN. LUNGS CTA, BOWEL SOUNDS ACTIVE. PATIENT REPORTS PAIN 5/10, REPORTS THIS IS TOLERABLE. ASSESSMENT PERFORMED. AM MEDS ADMINNISTERED. PATIENT RESTING IN BED WITH CALL LIGHT NEAR.
--- NOTE | 2022-04-03 11:21 | NUR ---
Director Inbound Sales met with patient as she is new to [facility]. Patient lives in [place] with her grandmother, Janice (ph#[phone]) and her three year old daughter, Shea Brown. Patient reports her father, Suresh (ph#[phone]) lives here locally. Patient advised the team has permission to contact her family with any updates. SW advised that a family meeting would be scheduled at a later time. Patient sees Keya Monreal APRN for primary care and obtains medications from [facility] with no difficulties. Patient does not normally use any DME. Patient advised she is in the process of establishing DPOA-HC. SW offered any assistance needed. Patient would like to be able to see her daughter. SW obtained permission for patient's three year old to visit today with the understanding it cannot be every day. Patient understands and is agreeable to this. ED notified LUCY.
[2022-04-03 16:41] VITALS: BP 127/71; PULSE 124; TEMP 98.9
--- NOTE | 2022-04-04 04:14 | NUR ---
Pt has had an uneventful shift thus far. Assessment and medication administration completed without difficulty. Pt is A&Ox3 and pleasant. Pt ambulated in the room with SBA to the bathroom. Pts gait is steady but weak. Pt has had complaints of back, PRN pain medication given per EMAR. All other needs met at this time. Call light within reach.
[2022-04-04 05:00] VITALS: BP 123/81; PULSE 114; TEMP 98.6
--- NOTE | 2022-04-04 08:31 | NUR ---
PATIENT RESTING WHEN I ARRIVED IN BED.
--- NOTE | 2022-04-04 09:02 | NUR ---
ASSESSMENT DONE ORDER. PATIENT IS ALERY X4. LUNG SOUND CLEAR IN ALL LOBES. BOWEL SOUND ACTIVE. PATIENT CONTINUE TO BE WEAK. P.T INFORM THAT PATIENT HAS LOWER EXTREMITES EDEMA.SPOKE WITH DR RUSHING AND HE WILL ORDER EDIS HOSE FOR PATIENT. EDUCATED PATIENT TO DRINK PLENTY OF WATER THROUGH OUT THE DAY TO HELP WITH EDEMA AND HEART RATE. RIGHT NOW PATIENT HEART RATE IS IN THE 100S(114).
--- NOTE | 2022-04-04 16:34 | NUR ---
Senior Environmental Scientist met with patient and provided copy of team conference notes. SW advised discharge date not set at this time and advised that the team is hoping to continue to build her confidence. SW to schedule family meeting. Patient advised SW start with her father as he will drive her grandmother to the meeting. Patient requested her daughter be able to attend since her grandmother is her caregiver. Shahnaz, [facility] Director approved this request. SW will follow up with patient's family to schedule meeting.
[2022-04-04 16:39] VITALS: BP 123/84; PULSE 117; TEMP 100.5
[2022-04-04 18:30] LABS: COLLECTION METHOD CLEAN CATCH
[2022-04-04 18:38] LABS: PH 7 (5-8); SQUAMOUS EPITHELIAL 0-2 /hpf (0-10); URINE APPEARANCE Clear (CLEAR/HAZY); URINE BACTERIA None Seen /hpf (NONE SEEN); URINE BILIRUBIN Negative (NEGATIVE); URINE BLOOD Negative (NEGATIVE); URINE COLOR Yellow (YELLOW); URINE GLUCOSE Negative (NEGATIVE); URINE KETONE Negative (NEGATIVE); URINE LEUKOCYTE ESTERASE Negative (NEGATIVE); URINE NITRATE Negative (NEGATIVE); URINE PROTEIN(semi-quant) Negative (NEGATIVE); URINE RBC None Seen /hpf (0-2); URINE UROBILINOGEN >=4.0 (NEGATIVE)
--- NOTE | 2022-04-04 20:00 | NUR ---
PT RESTING IN BED. PT DENIES PAIN AT THIS TIME. RECHECKED TEMP 98.2 ORAL. NO NEEDS AT THIS TIME. CALL LIGHT IN REACH. BED ALARM SET.
--- NOTE | 2022-04-05 02:02 | NUR ---
PT ASLEEP. NO DISTRESS.
[2022-04-05 05:04] VITALS: BP 120/71; PULSE 83; TEMP 98.4
[2022-04-05 07:44] LABS: MEAN CELL VOLUME 89 fl (80.0-100.0); MEAN CORPUSCULAR HGB CONC 30 g/dl (33.0-37.0); PLATELET COUNT 223 K/mm3 (130-400); RED BLOOD COUNT 3.02 M/mm3 (4.10-5.30); REDCELL DISTRIBUTION WIDTH-CV 19.9 % (11.5-14.5)
[2022-04-05 07:47] LABS: HEMOGLOBIN 8.2 g/dl (12.5-16.0); MEAN CORPUSCULAR HEMOGLOBIN 27 pg (27-31)
[2022-04-05 08:04] LABS: CALCIUM 8.5 mg/dL (8.4-10.2); CREATININE, serum 0.51 mg/dL (0.57-1.11); POTASSIUM 4.3 mmol/L (3.5-4.5)
[2022-04-05 08:50] LABS: ANISOCYTOSIS 2+; BAND 9 % (0-10); EOSINOPHIL 1 % (0-4); LYMPHOCYTE 10 % (20.0-51.0); METAMYELOCYTE 1 % (0-0); NEUTROPHILS 75 % (42.0-75.2); PLATELET ESTIMATE NORMAL (NORMAL)
[2022-04-05 08:51] LABS: HYPOCHROMIA 3+; MICROCYTOSIS 1+
[2022-04-05 08:52] LABS: OVALOCYTES 1+
[2022-04-05 08:53] LABS: POIKILOCYTOSIS 1+
--- NOTE | 2022-04-05 14:01 | NUR ---
Admission QIM scores were reviewed by the team. Code of 4 chosen for oral hygiene was determined by team discussion to be the most usual performance for this patient during the assessment period. Code of 4 chosen for toilet hygiene was determined by team discussion to be the most usual performance for this patient during the assessment period. Code of 4 chosen for toilet transfers was determined by team discussion to be the most usual performance for this patient during the assessment period. Code of 3 chosen for putting on/taking off footwear was determined by team discussion to be the most usual performance for this patient during the assessment period. Code of 6 chosen for lying to sitting on side of bed was determined by team discussion to be the most usual performance for this patient during the assessment period. Code of 4 for sit to stand was determined by team discussion to be the most usual performance for this patient during the assessment period.--Shahnaz Rivera, PD
--- NOTE | 2022-04-05 14:25 | NUR ---
Enamel Shader contacted patient's father, Suresh and scheduled family meeting for Saturday at 0930. Suresh advised he can rock picker patient's grandmother and daughter on the way to the meeting.
[2022-04-05 16:52] VITALS: BP 110/65; PULSE 125; TEMP 99.5
[2022-04-05 17:17] LABS: MAGNESIUM 2.1 mg/dL (1.6-2.6)
--- NOTE | 2022-04-05 18:21 | NUR ---
PATIENT ALERT AND ORIENTED X3. PATIENT WITH LOW GRADE TEMP, TYLENOL GIVEN. PATIENT REPORTS HEADACHE 03/02 REQUESTS TYLENOL. ASSESSMENT PERFORMED. AM MEDS ADMINISTERED. IV STARTED TO LEFT FOREARM FOR IV ABX. NS RUNNING AT 75/HOUR. PATIENT ENCOURAGED TO INCREASE FLUID INTAKE. PATIENT IN BED WITH CALL LIGHT NEAR.
--- NOTE | 2022-04-05 20:22 | NUR ---
PT RESTING IN BED. QUIET. C/O UREÑA. TOO SOON FOR TYLENOL. IV NS AT 75CC/HR TO LT F/A. NO RESP DISTRESS. RECHECKED PULSE 98 REG
[2022-04-06 05:34] VITALS: BP 126/71; PULSE 105; TEMP 100.3
--- NOTE | 2022-04-06 05:46 | NUR ---
TEMP 100.3. TYLENOL GIVEN.
[2022-04-06 06:31] VITALS: TEMP 100.6
[2022-04-06 06:42] LABS: MEAN CELL VOLUME 87 fl (80.0-100.0); MEAN CORPUSCULAR HGB CONC 31 g/dl (33.0-37.0); MEAN PLATELET VOLUME 7.5 fl (7.4-10.4); PLATELET COUNT 183 K/mm3 (130-400); RED BLOOD COUNT 2.91 M/mm3 (4.10-5.30); REDCELL DISTRIBUTION WIDTH-CV 19.2 % (11.5-14.5)
[2022-04-06 06:45] LABS: HEMATOCRIT 25.2 % (37.0-47.0); HEMOGLOBIN 7.8 g/dl (12.5-16.0); MEAN CORPUSCULAR HEMOGLOBIN 27 pg (27-31)
[2022-04-06 06:55] LABS: ALBUMIN 2.2 gm/dL (3.5-5.0); BILIRUBIN,TOTAL 0.7 mg/dL (0.2-1.2); CALCIUM 8.3 mg/dL (8.4-10.2); CREATININE, serum 0.46 mg/dL (0.57-1.11); POTASSIUM 3.8 mmol/L (3.5-4.5); TOTAL PROTEIN 7.5 gm/dL (6.2-8.1)
[2022-04-06 07:05] LABS: ANISOCYTOSIS 2+; BAND 7 % (0-10); LYMPHOCYTE 13 % (20.0-51.0); METAMYELOCYTE 2 % (0-0); NEUTROPHILS 72 % (42.0-75.2); PLATELET ESTIMATE NORMAL (NORMAL)
--- NOTE | 2022-04-06 07:39 | NUR ---
Shift report received from security shift manager RN. Pt. resting supine in bed. HOB elevated approx 20 degrees. Pt. assisted to bedside commode and then back to bed. She denies further needs at this time. Call light is within her reach
[2022-04-06 08:26] VITALS: TEMP 98.5
--- NOTE | 2022-04-06 08:34 | NUR ---
ASSESSMENT DONE. PATIENT IS ALERT AND ORIENT X 3 WITH NO ISSUE WITH SWALLOWING. PATIENT LUNG CLEAR BUT PATIENTIS NOT TAKING DEEP BREATH. VERY SHALLOW BREATH. BOWEL SOUND ACTIVE . PATIENT WEAK TODAY AND NEEDED 2 PERSON ASSISTANCE IN GETTING UP TO COMMODE. IV ON LEFT AC WITH NO ISSUE NOTED. INSTRUCTED PATIENT TO CONTINUE TO DRINK WATER TO HELP WITH EDEMA. EDIS TAIE ON ORDER
--- NOTE | 2022-04-06 13:02 | NUR ---
RECEIVED PHONE CALL FROM MIKE JOHNSON , HE WANTED AN UPDATED ON PATIENT. HE ALSO STATED THAT HE WILL CONTINUE WITH ANTIBIOTIC FOR NOW.
--- NOTE | 2022-04-06 14:38 | NUR ---
Junior Systems Administrator met with patient to check in before the weekend. Patient had no questions or concerns at this time. SW reminded patient about family meeting on Saturday at 0930.
[2022-04-06 17:25] VITALS: BP 112/68; PULSE 125; TEMP 100.5
[2022-04-06 18:03] VITALS: TEMP 98.5
--- NOTE | 2022-04-06 19:42 | NUR ---
RECEIVED CHANGE OF SHIFT REPORT FROM DAY SHIFT RN.
[2022-04-07] VITALS (8 sets, daily range): BP systolic 106–127; BP diastolic 51–74; PULSE 90–124; TEMP 98.3–102.2
--- NOTE | 2022-04-07 00:50 | NUR ---
PATIENT VERY WARM TO TOUGH, DENIES C/O CHILLING/SOA/CHEST PAIN AT THIS TIME. VS TAKEN, OBSERVED TEMP 102.3 MAX, TYLENOL GIVEN, SEE MAR. REMINDED PATIENT TO CONTINUE TO DO IS WHEN ABLE, PATIENT ATTEMPTED BUT STOPPED AFTER X3 INSPIRATIONS STATING ACTIVITY MADE HER COUGH. DENIES NAUSEA WITH COUGHING.
--- NOTE | 2022-04-07 04:39 | NUR ---
DOES NOT WAKE WHEN DOOR TO ROOM IS OPENED BY NURSING ON ROUNDS, SLEEPING IN BED WITH EXIT ALARM ON AND CALL LIGHT WITHIN REACH.
--- NOTE | 2022-04-07 06:49 | NUR ---
Shift report received from film historian RN. Pt awake and resting in bed with HOB elevated slightly. She denies pain/discomfort. Denies additional needs. Call light is within her reach
--- NOTE | 2022-04-07 07:09 | NUR ---
CHANGE OF SHIFT REPORT GIVEN TO DAY SHIFT RNCHANG.
--- NOTE | 2022-04-07 13:33 | NUR ---
Pt resting supine in bed watching television. She reports feeling tired after Group PT this morning. Headache reported by patient. Noted to have Temp 102F orally. BP WNL. Tylenol given for headache. Hospitalist on unit to round and was informed of pt's temp
--- NOTE | 2022-04-07 15:14 | NUR ---
Vancomycin Follow-up Pharmacy Note Current regimen: Vancomycin 1 gm IV q8h Vancomycin trough: 8.27 Adjustments: Will increase Vancomycin to 1.25 gm IV q8h. Pharmacy will continue to closely monitor and check trough on 04/09/22.
--- NOTE | 2022-04-07 18:45 | NUR ---
RECEIVED CHANGE OF SHIFT REPORT FROM DAY SHIFT RN. PATIENT RESTING IN BED DURING REPORT WITH EXIT ALARM ON WITH CALL LIGHT WITHIN REACH.
--- NOTE | 2022-04-07 21:00 | NUR ---
PATIENT AGREED TO HAVE PUREWICK PLACED DUE TO PATIENT VOICING CONCERNS REGARDING HER WEAKNESS TO BLE AND FEARS OF FALLING. PUREWICK PLACED WITH NO PROBLEMS REPORTED BY PATIENT.
[2022-04-08 01:51] VITALS: TEMP 98.5
--- NOTE | 2022-04-08 01:51 | NUR ---
[facility] DENIES ANY NEEDS OR CONCERNS AT THIS TIME. PUREWICK FUNCTIONING. IV ANTIBIOTIC INFUSING WITH NO PROBLEMS. CALL LIGHT WITHIN REACH, EXIT ALARM ON WHILE IN BED.
[2022-04-08 05:04] VITALS: BP 109/62; PULSE 91; TEMP 98.6
[2022-04-08 07:14] LABS: MEAN CELL VOLUME 89 fl (80.0-100.0); MEAN CORPUSCULAR HGB CONC 30 g/dl (33.0-37.0); PLATELET COUNT 191 K/mm3 (130-400); RED BLOOD COUNT 3.14 M/mm3 (4.10-5.30); REDCELL DISTRIBUTION WIDTH-CV 18.6 % (11.5-14.5)
[2022-04-08 07:19] LABS: HEMATOCRIT 27.8 % (37.0-47.0); HEMOGLOBIN 8.4 g/dl (12.5-16.0); MEAN CORPUSCULAR HEMOGLOBIN 27 pg (27-31)
--- NOTE | 2022-04-08 07:24 | NUR ---
CHANGE OF SHIFT REPORT GIVEN TO DAY SHIFT RNAUDRA.
--- NOTE | 2022-04-08 07:30 | NUR ---
Pt IV benedict when being flushed and is difficult to flush. Nursing staff has had a hard time with IV access, notified house officer. Will let pt finish her breakfast and will then look at new IV access. Plan for pt to transfer to [facility] as soon as a bed becomes available.
[2022-04-08 08:05] LABS: ALBUMIN 2.3 gm/dL (3.5-5.0); BILIRUBIN,TOTAL 0.7 mg/dL (0.2-1.2); C-REACTIVE PROTEIN 8.48 mg/dL (0.00-0.50); CALCIUM 8.8 mg/dL (8.4-10.2); CREATININE, serum 0.52 mg/dL (0.57-1.11); MAGNESIUM 2.1 mg/dL (1.6-2.6); POTASSIUM 3.2 mmol/L (3.5-4.5); TOTAL PROTEIN 8.1 gm/dL (6.2-8.1)
[2022-04-08 08:16] LABS: BAND 17 % (0-10); EOSINOPHIL 1 % (0-4); LYMPHOCYTE 13 % (20.0-51.0); NEUTROPHILS 65 % (42.0-75.2)
[2022-04-08 08:17] LABS: PLATELET ESTIMATE NORMAL (NORMAL)
--- NOTE | 2022-04-08 14:45 | NUR ---
Pt has been resting in bed today. She is able to reposition herself as needed. Pts chyna has been visiting this afternoon. She is aware that we are just waiting for a bed to open at [facility]. No pain complaints.
--- NOTE | 2022-04-08 17:00 | NUR ---
Pt has rested in bed throughout the day. Using Purwick for voiding. Pt continues to turn herself from side to side. Pt did have complaint of her bottom being a little sore. On side of her right butt cheek there is a lori size area that almost looks like blisters. Pt reports that it is tender to the touch. This does not appear to be a spot of pressure. Encouraged pt to continue to rotate from side to side
[2022-04-08 17:24] VITALS: BP 108/56; PULSE 113; TEMP 100.3
--- NOTE | 2022-04-08 18:44 | NUR ---
RECEIVED CHANGE OF SHIFT REPORT FROM DAY SHIFT RN.
[2022-04-08 19:20] VITALS: TEMP 101.7
[2022-04-08 21:17] VITALS: TEMP 98.5
--- NOTE | 2022-04-08 21:39 | NUR ---
CHANGED OUT PUREWICK, PROVIDED [facility] PER HOSP P/P. DENIES ANY NAUSEA/CHEST PAIN/SOA AT THIS TIME. OBSERVED SMALL CLUSTER OF BLISTERS TO MID INNER GLUTEAL CLEFT
[2022-04-09 03:09] VITALS: BP 103/64; PULSE 89; TEMP 99
--- NOTE | 2022-04-09 04:45 | NUR ---
NURSING ATTEMPTED TO DRAW BLOOD FOR VANCO TROUGH UNSUCCESSFULLY, PATIENT REPORTS HX OF DIFFICULT VENIPUNCTURES FOR LABS AND IV ACCESS. INFORMED LAB NURSING UNABLE TO DRAW BLOOD FOR VANCO TROUGH, LAB TO HAVE PHLEBOTOMISTS STAFF TO DRAW LABS WHEN THEY ARE AVAILABLE, FOR VANC TROUGH.
--- NOTE | 2022-04-09 06:01 | NUR ---
LAB RESULTED FOR VANCO TROUGH, CALLED TO PHARMACY WITH OK TO GIVE SCHEDULED AM VANCO THIS MORNING.
--- NOTE | 2022-04-09 07:09 | NUR ---
CHANGE OF SHIFT REPORT GIVEN TO DAY SHIFT RNAUDRA.
--- NOTE | 2022-04-09 09:37 | NUR ---
The patient continues to have fevers. The clinical team is looking at transferring the patient to [facility]. The patient's family meeting was canceled for today.
--- NOTE | 2022-04-09 14:05 | NUR ---
Pt has done well with therapy throughout the day. She does use the incentive spirometer with reminding. Only gets it up to about 500 and does cough with each time.
--- NOTE | 2022-04-09 15:30 | NUR ---
Pt IV in left AC leaking. Notified [facility]IVS for PICC placement. Pt continues to refuse her aracelis michaud
[2022-04-09] MEDS ORDERED: ROBAXIN 50500 MG/TAB PO (16:06)
[2022-04-09] MEDS ORDERED: CLARITIN 1010 MG/TAB PO (16:06)
[2022-04-09] MEDS ORDERED: TYLENOL 500MG500 MG PO (16:06)
[2022-04-09] MEDS ORDERED: ZOFRAN ODT4 MG PO (16:06)
[2022-04-09] MEDS ORDERED: LOVENOX 4040 MG/0.4 SQ (16:06)
[2022-04-09 16:59] VITALS: BP 119/70; PULSE 114; TEMP 100.4
--- NOTE | 2022-04-09 17:30 | NUR ---
Pt has PICC line placed in right upper arm. Zosyn going at this time. Pt will be transferring to [facility] this evening. Pt made aware
--- NOTE | 2022-04-09 22:50 | NUR ---
PATIENT TRASNFERRED TO [facility]. LEFT WITH [facility] AT 2240. RN HANDOFF REPORT GIVEN TO
== END 2022-04-09 22:40 | disposition short-term general hospital (02) | DRG 73 ==
PROVIDERS: Internal Medicine; Physician Assistant; ADMIT Physical Medicine & Rehabilitation Sports Medicine
DX: G61.81 Chronic inflammatory demyelinating polyneuritis (principal); E43 Unspecified severe protein-calorie malnutrition; J18.9 Pneumonia, unspecified organism; E87.1 Hypo-osmolality and hyponatremia; R26.89 Other abnormalities of gait and mobility; D64.89 Other specified anemias; R29.6 Repeated falls; E87.6 Hypokalemia; E87.8 Other disorders of electrolyte and fluid balance, not elsewhere classified; E88.09 Other disorders of plasma-protein metabolism, not elsewhere classified; R53.81 Other malaise; K76.0 Fatty (change of) liver, not elsewhere classified; R63.4 Abnormal weight loss; E55.9 Vitamin D deficiency, unspecified; Z88.1 Allergy status to other antibiotic agents; Z73.6 Limitation of activities due to disability; Z86.718 Personal history of other venous thrombosis and embolism; Z68.22 Body mass index [BMI] 22.0-22.9, adult; R20.2 Paresthesia of skin; I88.8 Other nonspecific lymphadenitis; R00.0 Tachycardia, unspecified; R51.9 Headache, unspecified; R11.15 Cyclical vomiting syndrome unrelated to migraine
CPT/HCPCS: A9284; C1751; C1892; J0696; J1650; J2543; J3370; J7030; J7050

== ENCOUNTER 2022-05-01 14:31 | Inpatient (IN) | payer MEDICAID ==
[~2022-05-01] VITALS: Ht 162.6 cm; Wt 68.5 kg
[~2022-05-01 14:31] MED LIST changes: +CLARITIN 1010 MG/TAB PO; +LOVENOX 4040 MG/0.4 SQ; +ROBAXIN 50500 MG/TAB PO; +TYLENOL 500MG500 MG PO
[2022-05-01 14:40] VITALS: BP 151/74; PULSE 87; TEMP 97.8
--- NOTE | 2022-05-01 14:40 | NUR ---
PATIENT WAS ADMITTED TO INPATIENT REHAB IN ROOM 335. PATIENT IS ALERTX4 WITH NO MEMORY ISSUE. PATIENT LUNG CLEAR IN ALL LOBES. BOWEL SOUND ACTIVE IN ALL 4 QUADS. STOMACH DISTEND BUT STOFF. PATIENT IS 1 PERSON ASSISTANCE WITH WALKER/GAIT BELT. PATIENT HAS BEEN DRINING ALOTMORE WATER AND URINATED TWICE SINCE ARRIVED. PATIENT HAS A PICC LINE ON RIGHT UPPER ARM(2 LUMEN). STAGE TWO BED SORE ON RIGHT UPPER COCCXY AREA. TEND TO TOUCH. VITALS 151/74 BP 97.8 TEMP 99 % O2 AT 87 HR. UPDATED MEDICATION LIST. PATIENT IS A REGULAR DIET. PER CHARGE NURSE AT [facility]. BLOOD SUGAR HAS BEEN LOW IN THE AM AND NOON BUT INCREASE AT NIGHT DUE TO PATIENT ORDERING FOOD THROUGH DOORDA
[2022-05-01] MEDS ORDERED: CEPACOL SORE TH1 LO8 MM (15:00)
[2022-05-01] MEDS ORDERED: PEPCID 20MG TAB20 MG PO (15:02)
[2022-05-01] MEDS ORDERED: FOLIC ACID 11 MG/TA1 PO (15:03)
[2022-05-01] MEDS ORDERED: NOVOLOG FLEX100 U/ML SQ (15:06)
[2022-05-01] MEDS ORDERED: K-TAB20 PO (15:12)
[2022-05-01] MEDS ORDERED: PREDNISONE20 MG PO (15:19)
[2022-05-01] MEDS ORDERED: PROGRAF 1MG1 MG PO (15:20)
--- NOTE | 2022-05-01 17:07 | NUR ---
CALL LIGHT IN REACH. EXPLAIN ABOUT ALL POLICY. PATIENT UNDERSTOOD.
[2022-05-01 17:56] VITALS: BP 155/86; PULSE 88; TEMP 97.6
[2022-05-02 05:56] VITALS: BP 124/74; PULSE 102; TEMP 98.7
--- NOTE | 2022-05-02 08:00 | NUR ---
PIC LINE ASSESSED; UNWRAPPED ROSANNE. PICC LINE CLEAN DRY AND INTACT. DOUBLE LUMEN (PURPLE AND RED PORTS). NO REDNESS, SWELLING. PATIENT WITH NO COMPLAINTS. DRESSING LAST CHANGED/DATED 04/29/2022.
--- NOTE | 2022-05-02 09:51 | NUR ---
Initial visit; Patient thanked Special Effects Artist for looking in on her and offering God's blessings. Patient's Physician later shared what María is experiencing so Special Effects Artist could better supervisor electronics processing to her needs. Special Effects Artist wished María well and will keep her in her prayers.
--- NOTE | 2022-05-02 11:15 | NUR ---
PATIENT GONE WITH THERAPY
--- NOTE | 2022-05-02 13:02 | NUR ---
BOTH PICC LINE PORT HUBS CHANGED AND FLUSHED. BOTH LINES HAVE GREAT BLOOD RETURN AND EASY FLUSHING. DRESSING TO SACRUM CHANGED.
--- NOTE | 2022-05-02 15:14 | NUR ---
ED met with the patient to complete intake, as the patient is new to [facility]. The patient lives in [place] with her grandmother, Janice (ph#[phone]), and her [id number] daughter. She reports needing assistance with ADLs before being hospitalized and has been using her grandmother's equipment. She states that her father and brother were helping her with her ADLs. She provides that she would like to get her own FWW and showerchair. The patient's primary care provider is Keya Monreal at [facility] in [place] and she receives her medications from [facility]. The patient does not have a DPOA-HC, but she states that she is working on one. She states that she is not , her child is under the age of 18, and her mother is . Her father, Suresh (ph#[phone]), is her legal next of kin. SW informed the patient of this. The patient verbalized understanding and is okay with this. The patient states that she would like to apply for disability while here. ED consulted Vinny financial counselor. ED also presented the patient with the IPR Team Conference Note. The patient was just admitted yesterday and the team was making their evaluations today. The team plans to re-eval the patient next Saturday. The patient is in agreement to the plan.
[2022-05-02 17:33] VITALS: BP 151/85; PULSE 103; TEMP 97.9
--- NOTE | 2022-05-02 20:30 | NUR ---
PT SITTING UP IN BED TALKING ON PHONE. NO NEEDS AT THIS TIME. CALL LIGHT IN REACH. BED ALARM SET.
[2022-05-03 04:57] VITALS: BP 135/82; PULSE 94; TEMP 98.4
--- NOTE | 2022-05-03 05:42 | NUR ---
PT AWAKE LAYING IN BED ON HER PHONE. DENIES COMPLAINTS. QUIET NIGHT.
--- NOTE | 2022-05-03 06:45 | NUR ---
BEDSIDE REPORT DONE ORDER. PATIENT RESTING IN BED WITH NO DISTRESS NOTED.
--- NOTE | 2022-05-03 08:57 | NUR ---
ASSESSMENT DONE ORDER. PATIENT ALERT X 4 TALKING TO HER GRANDMAN. LUNG SOUND CLEAR IN ALL LOBES. BOWEL SOUND ACTIVE IN ALL 4 QUADS. STOMACH DISTENDED BUT STUFF(ROUND STOMACH) BLOOD SUGAR 95 TODAY THIS AM. PATIENT ATE ABOUT 100% OF HER FOOD. CONTINUE TO BE SLIGHTLY WEEK WITH SLIGHT UNSTEADY GAIT. USE WALKER AND GAIT BELT. CALL LIGHT IN REACH. BED ALARM ON
--- NOTE | 2022-05-03 15:48 | NUR ---
PATIENT ACCIDENTLLY URINATED ON HERSELF. SHEETS WAS CHANGE. PANT WAS CHANGE.
[2022-05-03 17:04] VITALS: BP 133/82; PULSE 92; TEMP 98.5
--- NOTE | 2022-05-03 19:45 | NUR ---
ASSISTED PT TO BR SBA WITH WALKER. SLOW GUARDED GAIT. VOIDING W/O DIFFICULTY. REPORTED HAD BM TODAAY. NO PAIN AT THIS TIME. RETURN TO BED. ABLE TO LIFT LEGS INTO BED PER SELF. CALL LIGHT IN REACH.
--- NOTE | 2022-05-03 22:00 | NUR ---
MELATONIN GIVEN FOR SLEEP.
[2022-05-04 05:32] VITALS: BP 125/69; PULSE 93; TEMP 98.3
--- NOTE | 2022-05-04 06:42 | NUR ---
BEDSIDE REPORT DONE ORDER. PATIENT RESTING IN BED WITH NO DISTRESS.
[2022-05-04 07:46] LABS: MEAN CELL VOLUME 89 fl (80.0-100.0); MEAN CORPUSCULAR HGB CONC 31 g/dl (33.0-37.0); PLATELET COUNT 136 K/mm3 (130-400); RED BLOOD COUNT 2.91 M/mm3 (4.10-5.30); REDCELL DISTRIBUTION WIDTH-CV 19.3 % (11.5-14.5)
[2022-05-04 07:51] LABS: HEMATOCRIT 25.8 % (37.0-47.0); HEMOGLOBIN 7.9 g/dl (12.5-16.0); MEAN CORPUSCULAR HEMOGLOBIN 27 pg (27-31)
[2022-05-04 08:05] LABS: ALBUMIN 2.7 gm/dL (3.5-5.0); BILIRUBIN,TOTAL 0.3 mg/dL (0.2-1.2); CALCIUM 8.8 mg/dL (8.4-10.2); CREATININE, serum 0.55 mg/dL (0.57-1.11); POTASSIUM 3.7 mmol/L (3.5-4.5); TOTAL PROTEIN 6.5 gm/dL (6.2-8.1)
[2022-05-04 08:09] LABS: LYMPHOCYTE 31 % (20.0-51.0); METAMYELOCYTE 2 % (0-0); NEUTROPHILS 66 % (42.0-75.2)
[2022-05-04 08:10] LABS: ANISOCYTOSIS 1+; HYPOCHROMIA 2+
[2022-05-04 08:11] LABS: MICROCYTOSIS 1+
--- NOTE | 2022-05-04 09:54 | NUR ---
ASSESSMENT DONE ORDER. PATIENT ALERT X 4 WITH NO MEMORY ISSUE. PATIENT APPETITE GOOD EATING ABOUT 100% OF HER MEALS. LUNG CLEAR IN ALL LOBES. BOWEL SOUND ACTIVE IN ALL 4 QUADS WITH A BOWEL MOVEMENT YESTERDAY ON MY SHFIT. PATIENT HAS A PICC LINE ON RIGHT ARM. FLUSHING WELL WITH NO ISSUE. LOVENOX STARTED YESTERDAY. MELOTANIN WAS STARTED YESTERDAY FOR SLEEP AND PATIENT STATED SHE SLEPT WELL. CONTINUE TO USE WALKER AND GAIT BELT DUE TO SLIGHT UNSTEADY GAIT. LAB WORK DONE. VITALS ARE STEADY. CALL LIGHT IN REACH.
--- NOTE | 2022-05-04 14:58 | NUR ---
Label Stitcher checked in with patient prior to the weekend. Patient does not have any questions or concerns at this time. Patient states she may get to see her daughter, Shea this weekend.
--- NOTE | 2022-05-04 16:16 | NUR ---
LAB WORK WAS DONE THIS AM. PATIENT HAS BEEN DOING GOOD TODAY. NO INCONTINET EPOSIDE TODAY.APPETITE HAS BEEN GOOD EATING [id number]% OF HER MEALS.
[2022-05-04 16:25] VITALS: BP 138/89; PULSE 101; TEMP 98.2
--- NOTE | 2022-05-04 19:04 | NUR ---
RECEIVED CHANGE OF SHIFT REPORT FROM DAY SHIFT RN.
--- NOTE | 2022-05-04 20:16 | NUR ---
REQUESTING SLEEPING PILL FOR TONIGHT AROUND 2099.
[2022-05-05 05:31] VITALS: BP 149/84; PULSE 74; TEMP 97.9
--- NOTE | 2022-05-05 06:41 | NUR ---
BEDSIDE REPORT DONE ORDER. PATIENT RESTING IN BED. CALL LIGHT IN REACH.
--- NOTE | 2022-05-05 07:14 | NUR ---
CHANGE OF SHIFT REPORT GIVEN TO DAY SHIFT RNTERRANCE.
[2022-05-05 17:30] VITALS: BP 150/92; PULSE 92; TEMP 98.3
--- NOTE | 2022-05-05 18:10 | NUR ---
PATIENT HAS BEEN EATNG ABOUT 2 PLATE ON EACH MEALS. SHE STATED THAT SHE IS VERY HUNGRY. BLOOD SUGAR HAS BEEN NORMAL AND SHE DOESN'T NEED ANY INSULIN
--- NOTE | 2022-05-05 18:52 | NUR ---
RECEIVED CHANGE OF SHIFT REPORT FROM DAY SHIFT RN.
--- NOTE | 2022-05-05 21:16 | NUR ---
PATIENT REQUESTED AND GIVEN MELATONIN FOR SLEEP. DENIES ANY OTHER NEEDS.
[2022-05-06 05:23] VITALS: BP 146/79; PULSE 78; TEMP 97.9
--- NOTE | 2022-05-06 06:49 | NUR ---
CHANGE OF SHIFT REPORT GIVEN TO DAY SHIFT RNMARY.
--- NOTE | 2022-05-06 08:30 | NUR ---
PATIENT AWAKE AND ALERT. RESTING IN BED AT THIS TIME. NO COPMLAINTS. ALL BELONGINGS AND CALL LIGHT WITHIN REACH.
[2022-05-06 17:12] VITALS: BP 164/76; PULSE 103; TEMP 98
--- NOTE | 2022-05-06 19:04 | NUR ---
RECEIVED CHANGE OF SHIFT REPORT FROM DAY SHIFT RN.
--- NOTE | 2022-05-06 19:20 | NUR ---
PATIENT RESTING IN BED, LOOKING AT CELL PHONE. DENIES ANY NEEDS AT THIS TIME.
[2022-05-07 05:52] VITALS: BP 140/65; PULSE 89; TEMP 97.4
[2022-05-07 06:17] LABS: MEAN CELL VOLUME 89 fl (80.0-100.0); MEAN CORPUSCULAR HGB CONC 31 g/dl (33.0-37.0); MEAN PLATELET VOLUME 8.8 fl (7.4-10.4); PLATELET COUNT 143 K/mm3 (130-400); RED BLOOD COUNT 2.96 M/mm3 (4.10-5.30); REDCELL DISTRIBUTION WIDTH-CV 19.6 % (11.5-14.5)
[2022-05-07 06:28] LABS: HEMATOCRIT 26.4 % (37.0-47.0); HEMOGLOBIN 8.2 g/dl (12.5-16.0); MEAN CORPUSCULAR HEMOGLOBIN 28 pg (27-31)
[2022-05-07 06:35] LABS: ALBUMIN 2.7 gm/dL (3.5-5.0); BILIRUBIN,TOTAL 0.2 mg/dL (0.2-1.2); CALCIUM 8.7 mg/dL (8.4-10.2); CREATININE, serum 0.52 mg/dL (0.57-1.11); MAGNESIUM 1.6 mg/dL (1.6-2.6); POTASSIUM 4.1 mmol/L (3.5-4.5); TOTAL PROTEIN 6.1 gm/dL (6.2-8.1)
--- NOTE | 2022-05-07 07:01 | NUR ---
BEDSIDE REPORT DONE ORDER. PATIENT RESTING IN BED WITH NO DISTRESS. CALL LIGHT IN REACH.
--- NOTE | 2022-05-07 07:04 | NUR ---
CHANGE OF SHIFT REPORT GIVEN TO DAY SHIFT RNTERRANCE.
[2022-05-07 07:38] LABS: ANISOCYTOSIS 2+; BAND 4 % (0-10); HYPOCHROMIA 2+; LYMPHOCYTE 33 % (20.0-51.0); NEUTROPHILS 59 % (42.0-75.2); PLATELET ESTIMATE NORMAL (NORMAL)
--- NOTE | 2022-05-07 10:00 | NUR ---
ASSESSMENT DONE ORDER. PATIENT ALERT X 4 WITH NO MEMORY ISSUE. PATIENT IS INDEPENENTED MORE AND ABLE TO WALK TO THE BATHROOM WTIH WALK. ABLE TO DO ALL HYGEINE WITH OUT HELP. APPETITE GOOD. LUNG SOUND CLEAR. BOWEL SOUND ACTIVE. BLOOD PRESSURE WAS SLIGHTLY HIGH TODAY BUT HTN MEDICATION WAS GIVEN ORDER.
--- NOTE | 2022-05-07 12:31 | NUR ---
PATIENT HAS A SMALL OPENING NEXT TO THE STAGE [address] CREAM AND COVER AREA WITH OPTFORM FOR PATTING. EDUCATED PATIENT TO SWITCH FROM SIDE TO SIDE WHEN RESTING IN BED. NO DRAINAGE NOTED AND NO TENDER NOTED.
--- NOTE | 2022-05-07 14:14 | NUR ---
It Security Administrator stopped by to see patient and check in. Patient denied any questions or concerns, however did hope that she can go home Kyle.
[2022-05-07 17:14] VITALS: BP 129/79; PULSE 99; TEMP 98.4
--- NOTE | 2022-05-07 19:50 | NUR ---
PATIENT RESTING IN BED VISITING ON TELEPHONE AT THIS TIME. PATIENT REQUEST DINNER TRAYS BE REMOVED AT THIS TIME AND DENIES ANY FURTHER NEEDS OR CONCERNS. PATIENT INSTRUCTED TO CALL THIS NURSE WITH ANY NEEDS OR CONCERNS. PATIENT EXPRESSES APPRECIATION. CALL LIGHT IS WITHIN REACH OF PATIENT.
[2022-05-08 04:33] VITALS: BP 145/90; PULSE 88; TEMP 98.3
--- NOTE | 2022-05-08 06:14 | NUR ---
PATIENT HAS HAD AN UNEVENTFUL NIGHT. PATIENT REQUESTED CRANBERRY JUICE X 2 THIS NIGHT. PATIENT HAS SHOWN NO SIGNS OR SYMPTOMS OF ANY ISSUES. PATIENT UP TO RESTROOM AT THIS TIME. CALL LIGHT IS WITHIN REACH OF PATIENT.
--- NOTE | 2022-05-08 08:43 | NUR ---
Shift report was received from warehouse worker 2nd shift RN
--- NOTE | 2022-05-08 10:39 | NUR ---
Pt off the unit for Group Therapy. She remains on Mod I status. Pt was escorted to gym by OT
--- NOTE | 2022-05-08 12:07 | NUR ---
Pt is back from Group Therapy. Skin assessment completed. Stg II to right upper buttock noted w/out dressing on. No apparent drainage. Allevyn foam dressing applied. Discussed importance of q2h position changes with pt. She v/u. Call light is within her reach. She remains on Mod I status in her room
--- NOTE | 2022-05-08 14:44 | NUR ---
Patient's family meeting moved to tomorrow at 1345. Patient would like to speak with financial counseling. SW contacted Vinny Financial Counselor who will follow up with patient.
--- NOTE | 2022-05-08 16:01 | NUR ---
Pt resting in bed in left side lying position. She is watching shows on her phone. She denies pain/discomfort. Denies additional needs. Call light is within her reach
[2022-05-08 17:30] VITALS: BP 127/72; PULSE 97; TEMP 97.9
--- NOTE | 2022-05-08 19:00 | NUR ---
RECEIVED CHANGE OF SHIFT REPORT FROM DAY SHIFT RN.
[2022-05-09 06:03] VITALS: BP 134/88; PULSE 96; TEMP 98.8
--- NOTE | 2022-05-09 06:53 | NUR ---
Shift report received from inspector general RN
--- NOTE | 2022-05-09 10:05 | NUR ---
Pt off the unit to work with OT
--- NOTE | 2022-05-09 15:13 | NUR ---
Roofing Technician participated in family meeting which included patient's grandmother. Patient's daughter, Shea was also able to visit. MARCELA Christie Director opened the meeting by explaining it's purpose, then PT/OT reviewed patient's progress. Discharge date is set for Saturday and patient is agreeable to this. ED discussed outpatient therapy with patient who advised she would like to be set up at [facility] [address]. SW will assist with schedule appointments and transportation through Medicaid transport. Patient will also need a front wheeled walker and shower seat. Patient's grandmother advised they already have a shower seat. Patient would like to use [facility] for medications and inquired if they have delivery services. After the meeting, ED contacted [facility] and confirmed they deliver for a fee of $6. ED contacted [facility] [address] and scheduled PT for 05/21 @ 1000 and OT 05/21 @1100. ED also contacted [facility] and scheduled a hospital follow up with Keya Monreal NP on 05/29/22 at 1420. ED provided appointments to RN. ED faxed referral and order for FWW to [facility].
--- NOTE | 2022-05-09 15:31 | NUR ---
Ticket Clerk provided a copy of team conference notes to patient and reviewed discharge date and recommendations. SW also provided contact information for Medicaid transportation to patient.
[2022-05-09 16:54] VITALS: BP 134/78; PULSE 103; TEMP 98.4
--- NOTE | 2022-05-09 19:48 | NUR ---
RECEIVED CHANGE OF SHIFT REPORT FROM DAY SHIFT RN.
[2022-05-10 05:55] VITALS: BP 130/81; PULSE 68; TEMP 97.7
--- NOTE | 2022-05-10 07:02 | NUR ---
CHANGE OF SHIFT REPORT GIVEN TO DAY SHIFT RNTERRANCE.
--- NOTE | 2022-05-10 07:46 | NUR ---
BEDSIDE REPORT. PATIENT AWARE AND READY FOR THE DAY. CALL LIGHT IN REACH
--- NOTE | 2022-05-10 09:04 | NUR ---
ASSESSMENT DONE ORDER. PATIENT ALERT X 4 WITH NO MEMORY ISSUE. PATIENT KARINA NOW AND IS ABLE TO GET UP FROM BED TO BATHROOM WITH OUT ANY ISSUE. PATIENT CONTINUE TO USE THE WALKER FOR STABLILITY. LUNG CLEAR IN ALL LOBES. BOWEL SOUND ACTIVE IN ALL 4 QUADS. PATIENT DID SAY THAT HER BOWEL MOVEMENT IS SLIGHTLY PASTY. EDUCATED TO DRINK MORE WATER THROUGH OUT THE DAY AND EAT FIBER. PATIENT UNDERSTOOD.
[2022-05-10] MEDS ORDERED: PROGRAF 1MG1 MG PO (10:25)
[2022-05-10] MEDS ORDERED: FOLIC ACID 11 MG/TA1 PO (10:26)
[2022-05-10] MEDS ORDERED: K-TAB20 PO (10:29)
[2022-05-10] MEDS ORDERED: NORVASC 5MG5 MG/TAB PO (10:29)
[2022-05-10] MEDS ORDERED: IMMUNE GLOBULIN 100 MG/ML IV (10:40)
--- NOTE | 2022-05-10 11:53 | NUR ---
CALLED DR CARRINGTON FOR APPOINTMENT SCHEDULE SINCE PATIENT IS DISCHARGING TOMORROW. LEFT MESSAGE ON VM. WILL TRY AGAIN LATER TODAY.
--- NOTE | 2022-05-10 13:24 | NUR ---
Synchronizer collaborated with RN and was advised Dr. Sweet does not accept Medicaid but patient could schedule as self pay. ED contacted [facility] in [place] and Dr. Hale does take Medicaid, but won't have openings for new patients until September. ED faxed patient's records. ED also left a message for [facility] as patient was recently hospitalized there. ED contacted [facility] and confirmed they received walker order. ED was advised they can deliver walker prior to discharge tomorrow. ED emailed [employer] Counselor and requested she speak with patient prior to discharge tomorrow. ED faxed patient records to [facility]. ED left a message for Keya Monreal's RN and requested a call for care coordination. [facility] and [facility]ed referral and order for IVIG. Domonique with [facility] will review and call SW back with an appointment time. Prior auth will need to be secured. ED contacted Medicaid Transportation and scheduled rides for patient's upcoming PT/OT appointment (trip #[id number]) and PCP (trip #[id number]). SW to provide fish bait picker times to patient prior to discharge.
[2022-05-10] MEDS ORDERED: PREDNISONE20 MG PO (13:29)
--- NOTE | 2022-05-10 18:08 | NUR ---
BLOOD SUGAR THIS EVENING WAS SLIGHTLY HIGH BUT NOT TO PRAVIN TO GIVE INSULIN. EXPLAIN TO CONTINUE TO DRINK WATER. PATIENT HAD ABOUT 12 OZ TODAY. PATIENT STATED THAT SHE HAS BEEN DRINKING MORE WATER THEN NORMAL AND HAS BEEN TRYING TO FINISH THE 28 OZ CUP
[2022-05-10 18:13] VITALS: BP 164/109; PULSE 106; TEMP 98.1
[2022-05-10 18:24] VITALS: BP 133/71
--- NOTE | 2022-05-10 19:15 | NUR ---
RECEIVED CHANGE OF SHIFT REPORT FROM DAY SHIFT RN.
[2022-05-11 05:36] VITALS: BP 138/72; PULSE 95; TEMP 98.4
--- NOTE | 2022-05-11 05:57 | NUR ---
PATIENT RESTING IN BED WITH NO REPORTED NEEDS OR CONCERNS. UP IN ROOM PER SELF WITH NO REPORTED PROBLEMS OR CONCERNS.
--- NOTE | 2022-05-11 06:42 | NUR ---
CHANGE OF SHIFT REPORT GIVEN TO DAY SHIFT RNAUDRA.
--- NOTE | 2022-05-11 08:03 | NUR ---
Pt doing well this morning and is excited to be going home today. Pt is aware that she will have prescriptions to picker and packer, confirmed [facility] as her pharmacy. Discussed transportation which she stated that she has discussed with R[facility]i to have some set up. All questions answered, no needs verbalized
[2022-05-11 11:26] VITALS: BP 154/62; PULSE 99; TEMP 97.6
--- NOTE | 2022-05-11 12:38 | NUR ---
Truck Driver Instructor faxed discharge orders and summary to [place] [facility] [address] [facility]. SW confirmed that patient's FWW was delivered to her room. ED then contacted Dr. Hale's office at [facility] and they received referral and can accept patient. Earliest appointment available was scheduled for 08/21/22 @0800 with RENETTA Man. SW provided appointment to community health advisor to include in discharge paperwork. Patient was also put on a cancellation list at Dr. Hale's office. SW met with patient to provide update. SW provided information about transportation to PT/OT and PCP. SW advised patient that she would need to schedule transportation to her neurology follow up closer to the appointment date and patient verbalized understanding. Patient confirmed she has contact information for medicaid transportation. Patient informed SW that she is already connected with Ericka, Community Health worker with [facility]. SW encouraged patient to utilize her as a resource. SW was able to find out that patient's [facility] Narcotics Detective is Светлана Martell. SW emailed Светлана and requested assistance with managing patient's follow up appointments, transportation, and needed authorization. SW contacted LUCY Youssef at [facility] who advised they cannot schedule patient until authorization for IVIG is secured. ED contacted [facility] authorization team and was advised that this specialty med has to go through their online portal. SW requested Case Management assistance. SW updated patient that appointment will not be scheduled before discharge, but the team will continue to work on it. DE contacted Medicaid transportation and scheduled discharge transportation home.
--- NOTE | 2022-05-11 13:00 | NUR ---
Pt continues to do well, no needs or complaints. Aware that we are waiting on transportation, but they have been notified. All paperwork with appointments and prescriptions have been reviewed.
--- NOTE | 2022-05-11 16:05 | NUR ---
Pt escorted out at this time
== END 2022-05-11 16:00 | disposition home or self-care (01) | DRG 74 ==
PROVIDERS: ADMIT Physical Medicine & Rehabilitation Sports Medicine
DX: G61.81 Chronic inflammatory demyelinating polyneuritis (principal); D61.818 Other pancytopenia; D76.1 Hemophagocytic lymphohistiocytosis; E46 Unspecified protein-calorie malnutrition; R53.81 Other malaise; R73.9 Hyperglycemia, unspecified; E87.6 Hypokalemia; I10 Essential (primary) hypertension; R16.2 Hepatomegaly with splenomegaly, not elsewhere classified; L89.312 Pressure ulcer of right buttock, stage 2; R26.89 Other abnormalities of gait and mobility; Z73.6 Limitation of activities due to disability; Z86.718 Personal history of other venous thrombosis and embolism; Z88.1 Allergy status to other antibiotic agents; Z79.52 Long term (current) use of systemic steroids; Z79.899 Other long term (current) drug therapy
CPT/HCPCS: A9284; J1650; J7507; J7512

== ENCOUNTER 2022-05-21 09:38 | Outpatient (RCR) | payer MEDICAID ==
[~2022-05-21 09:38] MED LIST changes: +CEPACOL SORE TH1 LO8 MM; +FOLIC ACID 11 MG/TA1 PO; +IMMUNE GLOBULIN 100 MG/ML IV; +K-TAB20 PO; +NORVASC 5MG5 MG/TAB PO; +NOVOLOG FLEX100 U/ML SQ; +PEPCID 20MG TAB20 MG PO; +PROGRAF 1MG1 MG PO
== END 2022-05-23 | disposition home or self-care (01) ==
LOC: WSPT
DX: G61.81 Chronic inflammatory demyelinating polyneuritis (principal)

== ENCOUNTER → 2022-05-30 | Outpatient (CLI) | payer MEDICAID ==
[~2022-05-30] VITALS: Ht 162.6 cm; Wt 75.6 kg
[2022-05-30 08:55] VITALS: BP 119/79; PULSE 92; TEMP 98.2
[2022-05-30 09:22] VITALS: BP 107/74; PULSE 92; TEMP 98
[2022-05-30 09:37] VITALS: BP 112/75; PULSE 91; TEMP 98
[2022-05-30 09:52] VITALS: BP 111/74; PULSE 89; TEMP 98.6
[2022-05-30 12:15] VITALS: BP 111/70; PULSE 78; TEMP 98
== END ==
LOC: EUO 05-28 09:00
DX: Z51.81 Encounter for therapeutic drug level monitoring (principal)
CPT/HCPCS: J1569

== ENCOUNTER 2022-07-25 09:18 | Outpatient (CLI) | payer MEDICAID ==
[~2022-07-25] VITALS: Wt 69.7 kg
[2022-07-25 10:33] VITALS: BP 107/66; PULSE 113; TEMP 101.8
--- NOTE | 2022-07-25 12:40 | NUR ---
Pt transferred to ED per pt request by this nurse.
[2022-07-26] MEDS ORDERED: MULTI VITAMINS1 TAB PO (09:02)
[2022-07-26] MEDS ORDERED: TYLENOL 8 HR PO (09:04)
== END 2022-07-25 15:19 | disposition home or self-care (01) ==
LOC: EUO 09:18
DX: Z79.899 Other long term (current) drug therapy (principal)
CPT/HCPCS: J1569